=== PATIENT | female | born 1995 | race Caucasian/White ===

== ENCOUNTER → 2016-04-04 | Outpatient (CLI) | payer BC, OTHER | LOC: RAD 09:10 | PROVIDERS: ATTEND Physician Assistant | DX: R10.31 Right lower quadrant pain (principal); R74.8 Abnormal levels of other serum enzymes; N83.291 Other ovarian cyst, right side | CPT/HCPCS: 76705; 76830; 93976 ==

== ENCOUNTER → 2018-12-03 | Outpatient (CLI) | payer BC ==
--- NOTE | 2018-12-03 12:45 | RADIOLOGY REPORT (SQ) ---
EXAM DESCRIPTION: U/S ABDOMEN LIMITED W/O DOP COMPLETED DATE/TIME: 12/03/2018 12:12 pm REASON FOR STUDY: UMBILICAL DISCHARGE (R19.8) R19.8 OTH SYMPTOMS AND SIGNS INVOLVING THE DGSTV SYS AND ABD COMPARISON: None. TECHNIQUE: Dynamic and static grayscale images acquired of the localized site of clinical concern an d recorded on PACS. Additional selected color Doppler and spectral images recorded. SITE OF CONCERN: Periumbilical abdominal wall. LIMITATIONS: None. FINDINGS: No sonographic abnormality. No soft tissue masses or fluid collections. IMPRESSION: NO SONOGRAPHIC ABNORMALITY IN THE PERIUMBILICAL ABDOMINAL WALL. TECHNICAL DOCUMENTATION: JOB ID: [id number] [employer]- All Rights Reserved Reading location - IP/workstation name: [email or web address]
== END ==
LOC: RAD 10:44
PROVIDERS: ATTEND Nurse Practitioner Family
DX: R19.8 Other specified symptoms and signs involving the digestive system and abdomen (principal)
CPT/HCPCS: 76705

== ENCOUNTER 2019-01-07 12:15 | Day surgery (SDC) | payer BC ==
[2019-01-01 10:28] LABS: HEMATOCRIT 42.3 % (36.0-47.0); HEMOGLOBIN 14.1 g/dL (12.0-15.5); MEAN CORPUSCULAR HGB CONC 33.3 g/dL (32.0-36.0); MEAN CORPUSCULAR VOLUME 87 fl (80-97); PLATELET COUNT 260 10^3/uL (150-450); RED BLOOD COUNT 4.85 10^6/uL (3.72-5.28); RED CELL DISTRIBUTION WIDTH 13.3 % (11.5-14.0); WHITE BLOOD COUNT 7.8 10^3/uL (4.0-10.5)
[~2019-01-07 12:15] MED LIST: CEFAZOLIN SODIUM 1 GM in DEXTROSE 5%-WATER 50 ML IV PRN; LIDOCAINE 0.5% INJ-PF (5 MG/ML) 50 ML SDV SUBCUT PRN; RINGERS SOLUTION,LACTATED 1,000 ML IV PRN
[2019-01-07] MEDS ORDERED: DEXAMETHASONE SOD PHOSPHATE INJ 4 MG/1 ML VIAL ONE (14:30)
[2019-01-07] MEDS ORDERED: MORPHINE SULFATE 10 MG/ML INJ ONE (14:30)
[2019-01-07] MEDS ORDERED: ONDANSETRON HCL INJ/PF 4 MG/2 ML SDV ONE (14:30)
[2019-01-07] MEDS ORDERED: MIDAZOLAM 2 MG/2 ML INJ ONE (14:30)
[2019-01-07] MEDS ORDERED: FENTANYL CITRATE INJ/PF 100 MCG/2 ML AMPUL ONE (14:30)
[2019-01-07] MEDS ORDERED: PROPOFOL INJ 200 MG/20 ML VIAL IV ONE (14:31)
[2019-01-07] MEDS ORDERED: BUPIVACAINE INJ/PF LIPOSOME/PF 266 MG/20 ML SDV ONE (15:21)
[2019-01-07] MEDS ORDERED: BUPIVACAINE HCL 0.5 % INJ/PF 30 ML SDV ONE (15:41)
--- NOTE | 2019-01-07 16:02 | Discharge Summary ---
Discharge Summary (SDC) - Discharge Final Diagnosis: epigastric hernia Condition: Good Referrals: MARGARET REYNOLDS PA-C [Primary Care Provider] - Discharge Diet: As Tolerated Discharge Activity: Activity As Tolerated, No Lifting Over 10 Pounds Report the Following to Your Physician Immediately: Shortness of Breath, Vomiting, Unusual Bleeding - needs appoint iwth me in 2-3 wks.
[2019-01-07] MEDS: FENTANYL CITRATE INJ/PF 100 MCG/2 ML AMPUL ONE ×2 (16:05→16:10)
--- NOTE | 2019-01-07 16:08 | Operative Report ---
Nonrecallable Operative Report DATE OF SURGERY: 01/07/19 PREOPERATIVE DIAGNOSIS: Epigastric hernia POSTOPERATIVE DIAGNOSIS: Epigastric hernia OPERATION: Wound exploration and epigastric hernia repair SURGEON: STUART HUTCHINSON ANESTHESIA: GA TISSUE REMOVED OR ALTERED: None COMPLICATIONS: None ESTIMATED BLOOD LOSS: 5 cc INTRAOPERATIVE FINDINGS: Myofascial defect inferior to cholecystectomy port site PROCEDURE: Notes the patient was brought to the operating room awake alert in stable condition placed on the operative table supine position induced under general anesthesia and laryngeal airway was placed The area of concern was the epigastric port site from a previous laparoscopic cholecystectomy the patient had persistent pain and a questionable bulge at that area. A longitudinal incision was made over the epigastric port site and dissection was carried down through subcutaneous tissue with Bovie cautery the fascia of the rectus muscle was identified after blunt and sharp dissection we were able to identify a small fascial dehiscence about 3 cm below the xiphoid tip where the previous laparoscopic port was placed. I was concerned that this may not be the exact site of her hernia and therefore I open the fascia at this point approximately half centimeter at that fascial defect site and inserted my finger into the abdominal cavity underneath the rectus fascia and swept cephalad and inferior to make sure that she did not have any undiagnosed hernia and I could not feel a defect at all. I therefore closed that fascial defect as well as the defect that I created to digitalized the undersurface of the fascia. It was closed in 2 layers with interrupted 0 Vicryl suture. The subcutaneous tissue was then reapproximated with interrupted 3-0 Vicryl and skin was reapproximated intracanicular 3-0 Biosyn Steri-Strips completed the procedure estimated blood loss was negligible sponge needle counts were correct x2 patient was awakened in the operating room transferred recovery in stable condition also of note we did inject Exparel in the subcutaneous tissue and underneath the fascia for pain control postop thanks
[2019-01-07] MEDS ORDERED: ACETAMINOPHEN 1,000 MG/100 ML RTUPB IV ONE (16:28)
[2019-01-07] MEDS ORDERED: MEPERIDINE HCL/PF INJ 25 MG/1 ML DISP.SYRIN IV PRN (16:41)
[2019-01-07] MEDS ORDERED: MORPHINE SULFATE 10 MG/ML INJ IV PRN (16:41)
[2019-01-07] MEDS ORDERED: FENTANYL CITRATE INJ/PF 100 MCG/2 ML AMPUL IV PRN ×3 (16:41)
[2019-01-07] MEDS ORDERED: PROMETHAZINE HCL INJ 25 MG/1 ML VIAL IV PRN (16:41)
[2019-01-07] MEDS ORDERED: DIPHENHYDRAMINE HCL 50 MG/ML VIAL IV PRN (16:41)
[2019-01-07] MEDS ORDERED: OXYCODONE-ACETAMINOPHEN 5-325 MG TABLET ONE (17:09)
[2019-01-07 18:51] VITALS: BP 108/68
== END 2019-01-07 18:10 | disposition home or self-care (01) ==
LOC: OROUT 12:15
PROVIDERS: ATTEND Surgery
DX: K43.9 Ventral hernia without obstruction or gangrene (principal); I95.1 Orthostatic hypotension; F17.210 Nicotine dependence, cigarettes, uncomplicated
CPT/HCPCS: 49560; 36415; 85027; 81025; J2250; J3490; J0690; J1100; J3010; J2270; J2405; J7060; J2704; J0131; C9290